=== PATIENT | male | born 1955 | race Caucasian/White ===

== ENCOUNTER 2019-11-19 13:56 | Emergency (ER) | payer BC, OTHER ==
[~2019-11-19] VITALS: Ht 177.8 cm; Wt 72.6 kg
[~2019-11-19 13:56] MED LIST: LISINOPRIL10 MG PO
--- OUTSIDE RECORDS SUMMARY | 2019-11-19 13:58 | XMS REPORT | Continuity of Care Document ---
Author Author Joanna Solo U4EA CORBIN Cervantes Organization [employer] Address Unknown Phone Unavailable Care Team Providers Care Toll Operator Name Role Phone [employer] Unavailable Un available Problems Problem Status Onset Date Classification Date Reported Comments Source Discharge Diagnosis: Confusion 10/22/2015 10/25/2015 [facility] CHEST PAIN Active 10/21/2015 [facility] Hypertensive disorder, systemic arterial (disorder) Active Problem 04/10/2019 [facility] Varicella (disorder) Active Problem 04/10/2019 [facility] [place] [facility] [place] Medications Medication Details Route Status Patient Instructions Ordering Provider Order Date Source Metoprolol Succinate ER 25 mg oral table t, extended release 25 mg = 1 tab, PO, Daily, # 90 tab, 1 Re fill(s), Pharmacy: [facility] Active 04/08/2019 [facility] Amlodipine 10 MG / Olmesartan medoxomil 40 MG Oral Tablet 1 tab, PO, Daily, # 90 tab, 1 Refill(s), Pharmacy: [facility] Active 04/08/2019 [facility] {11 (varenicline 0.5 MG Oral Tablet [Kimmy ntix]) / 42 (varenicline 1 MG Oral Tablet [Chantix]) } Pack [Chantix First Month of Therapy] See Instructions, follow instructions on kit, # 1 kit, 0 Refill(s), Pharmacy: [facility] Active 12/10/2018 [facility] Anoro Ellipta 62.5 mcg-25 mcg inhalation powder 1 puff, INHALATION, Daily, # 1 ea, 5 Refill(s), Pharmacy: [facility] Active 12/10/2018 [facility] Metoprolol Succinate ER 25 mg oral table t, extended release 25 mg = 1 tab, PO, Daily, # 90 tab, 1 Re fill(s), Pharmacy: [facility] Active 11/27/2018 [facility] Amlodipine 10 MG / Olmesartan medoxomil 40 MG Oral Tablet 1 tab, PO, Daily, # 90 tab, 1 Refill(s), Pharmacy: [facility] Active 10/16/2018 [facility] metoprolol 25 mg oral tablet, extended release 25 mg = 1 tab, PO, Daily, # 30 tab, 0 Refill(s), Pharmacy: [facility] Active 10/16/2018 [facility] Amlodipine 10 MG / Olmesartan medoxomil 40 MG Oral Tablet 1 tab, PO, Daily, # 30 tab, 0 Refill(s), Pharmacy: [facility] Active 10/03/2018 [facility] Amlodipine 10 MG / Olmesartan medoxomil 20 MG Oral Tablet 1 tab, PO, Daily, # 30 tab, 0 Refill(s), Pharmacy: [facility] No Longer Active 09/17/2018 [facility] Amlodipine 5 MG / Olmesartan medoxomil 2 0 MG Oral Tablet 1 tab, PO, Daily, # 30 tab, 0 Refill(s), Pharmacy: [facility] Active 09/03/2018 [facility] amLODIPine 5 mg oral tablet 5 mg = 1 tab, PO, Daily, # 30 tab, 0 Refill(s), Pharmacy: [facility] Active 08/06/2018 [facility] FLUoxetine 40 mg oral capsule 40 mg = 1 cap, PO, Daily, # 90 cap, 1 Refill(s), Pharmacy: [facility] Active 07/13/2017 [facility] amLODIPine 5 mg oral tablet 5 mg = 1 tab, PO, Daily, # 90 tab, 1 Refill(s), Pharmacy: [facility] Active 07/13/2017 [facility] Fluticasone propionate 0.05 MG/ACTUAT Me tered Dose Nasal [place] [Flonase] 1 spray, NASAL, BID, # 16 gm, 2 Refill(s ), Pharmacy: [facility] Active 07/13/2017 [facility] Oseltamivir 75 MG Oral Capsule [Tamiflu] 75 mg, PO, Daily, X 10 day, # 10 caplet, 0 Refill(s), Pharmacy: [facility] No Longer Active 07/10/2017 [facility] Amoxicillin 875 MG / Clavulanate 125 MG Oral Tablet [Augmentin 875-mg] 875 mg = 1 tab, PO, BID, X 10 day, # 20 tab, 0 Refill(s), Pharmacy: [facility] [place] No Longer Active 07/10/2017 [facility] valacyclovir 1000 MG Oral Tablet [Valtrex] 1 gm = 1 tab, PO, BID, X 7 day, # 14 tab, 0 Refill(s), Pharmacy: [facility] No Longer Active 07/10/2017 [facility] Oseltamivir 75 MG Oral Capsule [Tamiflu] 75 mg, PO, BID, X 5 day, # 10 cap, 0 Refill(s), Pharmacy: [facility] Active 05/24/2017 [facility] Allergies, Adverse Reactions, Alerts Substance Category Reaction Severity Reaction type Status Date Reported Comments Source No Known Medication Allergies Assertion Drug aller [facility] Immunizations Immunization Date Given Site Status Last Updated Comments Source pneumococcal 23-valent vaccine 11/27/2018 Right Deltoid completed [facility] influenza virus vaccine, inactivated 03/12/2018 completed [facility] diphtheria/pertussis/tetanus tox 06/12/2016 completed [facility] Results Order Name Results Value Reference Range Date Interpretation Comments Source URINE AND STOOL UA Turbidity Clear (10/22/15 1:36 AM) Clear 10/22/2015 [facility] URINE AND STOOL UA RBC 4 0 - 2 10/22/2015 [facility] URINE AND STOOL UA Leuk Est Negative (10/22/15 1:36 AM) Negative 10/22/2015 [facility] URINE AND STOOL UA Sq Epi None Seen 10/22/2015 [facility] URINE AND STOOL UA Color Ltyellow 10/22/2015 [facility] URINE AND STOOL UA Urobilinogen <=1.0 mg/dL 0.1 - 1.0 10/22/2015 [facility] URINE AND STOOL UA Spec Grav 1.011 <=1.030 10/22/2015 [facility] URINE AND STOOL UA Protein Negative mg/dL Negative mg/dL 10/22/2015 [facility] URINE AND STOOL UA Glucose Negative mg/dL Negative mg/dL 10/22/2015 [facility] URINE AND STOOL UA pH 6.0 5.0 - 8.0 10/22/2015 [facility] URINE AND STOOL UA Ketones Negative mg/dL Negative mg/dL 10/22/2015 [facility] URINE AND STOOL UA Bili Negative *NA* (10/22/15 1:36 AM) Negative 10/22/2015 [facility] URINE AND STOOL UA Blood Small *ABN* (10/22/15 1:36 AM) Negative 10/22/2015 [facility] URINE AND STOOL UA Nitrite Negative (10/22/15 1:36 AM) Negative 10/22/2015 [facility] CARDIAC ENZYMES Total CK 96 12 - 191 10/22/2015 [facility] CARDIAC ENZYMES Troponin-I <0.02 0.00 - 0.40 10/22/2015 [facility] CARDIAC ENZYMES CK MB 1.6 0.5 - 3.6 10/22/2015 [facility] CARDIAC ENZYMES CK MB Index 1.7 0.0 - 2.5 10/22/2015 [facility] CHEM PANEL eGFR 87 10/22/2015 Result Comment: The eGFR is calculated using the CKD-EPI formula. In most young, healthy individuals the eGFR will be >90 mL/min/1.73m2. The eGFR declines with age. An eGFR of 60-89 may be normal in some populations, particularly the elderly, for whom the CKD-EPI formula has not been extensively validated. Use of the eGFR is not recommended in the following populations:

Individuals with unstable creatinine concentrations, including patients and those with serious co-morbid conditions.

Patients with extremes in muscle mass or diet.

The data above are obtained from the National Kidney Disease Education Program (NKDEP) which additionally recommends that when the eGFR is used in patients with extremes of body mass index for purposes of drug dosing, the eGFR should be multiplied by the estimated BMI. [facility] CHEM PANEL Sodium Lvl 142 135 - 145 10/22/2015 [facility] CHEM PANEL Creatinine Lvl 0.95 0.50 - 1.40 10/22/2015 [facility] CHEM PANEL BUN 15 7 - 22 10/22/2015 [facility] CHEM PANEL Albumin Lvl 3.8 3.5 - 5.0 10/22/2015 [facility] CHEM PANEL Total Protein 6.7 6.4 - 8.4 10/22/2015 [facility] CHEM PANEL ALT 24 0 - 65 10/22/2015 [facility] CHEM PANEL Potassium Lvl 3.9 3.5 - 5.1 10/22/2015 [facility] CHEM PANEL CO2 30 24 - 32 10/22/2015 [facility] CHEM PANEL Chloride Lvl 106 95 - 109 10/22/2015 [facility] CHEM PANEL Calcium Lvl 8.4 8.5 - 10.5 10/22/2015 [facility] CHEM PANEL Alk Phos 94 39 - 136 10/22/2015 [facility] CHEM PANEL AST 21 0 - 37 10/22/2015 [facility] CHEM PANEL Bili Total 0.4 0.2 - 1.3 10/22/2015 [facility] CHEM PANEL Glucose Lvl 86 70 - 99 10/22/2015 [facility] CHEM PANEL A/G Ratio 1.3 0.7 - 1.6 10/22/2015 [facility] CHEM PANEL Globulin 2.9 2.0 - 4.0 10/22/2015 [facility] CHEM PANEL B/C Ratio 16 6 - 25 10/22/2015 [facility] CHEM PANEL AGAP 9.9 10.0 - 20.0 10/22/2015 [facility] HEMATOLOGY INR 1.01 0.85 - 1.17 10/22/2015 [facility] HEMATOLOGY PTT 32.2 22.9 - 35.8 10/22/2015 [facility] HEMATOLOGY PT 13.6 12.0 - 14.7 10/22/2015 [facility] HEMATOLOGY MCHC 33.1 32.0 - 36.0 10/22/2015 [facility] HEMATOLOGY MCH 30.4 27.0 - 31.0 10/22/2015 [facility] HEMATOLOGY RDW 13.5 11.5 - 14.5 10/22/2015 [facility] HEMATOLOGY Hct 47.1 42.0 - 54.0 10/22/2015 [facility] HEMATOLOGY Hgb 15.6 14.0 - 18.0 10/22/2015 [facility] HEMATOLOGY MCV 91.9 80.0 - 94.0 10/22/2015 [facility] HEMATOLOGY Platelet 199 133 - 450 10/22/2015 [facility] HEMATOLOGY MPV 8.5 7.4 - 10.4 10/22/2015 [facility] HEMATOLOGY RBC 5.12 4.70 - 6.10 10/22/2015 [facility] HEMATOLOGY WBC 5.8 3.7 - 10.4 10/22/2015 [facility] HEMATOLOGY Basophils 1.0 0.0 - 1.0 10/22/2015 [facility] HEMATOLOGY Segs 56.9 45.0 - 75.0 10/22/2015 [facility] HEMATOLOGY Monocytes 10.0 2.0 - 12.0 10/22/2015 [facility] HEMATOLOGY Eosinophils 5.2 0.0 - 4.0 10/22/2015 [facility] HEMATOLOGY Lymphocytes 26.9 20.0 - 40.0 10/22/2015 [facility] Monocytes # 0.6 0.0 - 0.8 10/22/2015 [facility] HEMATOLOGY Segs-Bands # 3.3 1.5 - 8.1 10/22/2015 [facility] Lymphocytes # 1.6 1.0 - 5.5 10/22/2015 [facility] HEMATOLOGY Basophils # 0.1 0.0 - 0.2 10/22/2015 [facility] HEMATOLOGY Eosinophils # 0.3 0.0 - 0.5 10/22/2015 [facility] Pathology Reports No Data Provided for This Section Diagnostic Reports Report Value Date Source CT Low Dose Lung Screening Julio dy: CT Low Dose Lung Screening Age: 62 years y/o Male Clinical Indication: - Z72.0 Tobacco use; HISTORY: Asymptomatic patient meeting NCCN high-risk criteria for lung screening. Patient is currently a smoker. There is a 50 pack-year history of smoking. Exam: This is a baseline study. COMPARISON: None. TECHNIQUE: Noncontrast, volumetric low-dose CT Chest. Total exam DLP: 104.28 mGy-- cm FINDINGS: Heart is normal in size. Scattered aortic calcifications. The ascending aorta and pulmonary trunk are normal in caliber. Mild calcifications in the left anterior descending and left circumflex coronary arteries. No pericardial effusion. There are no pleural effusions. Evaluation of the solid organs of the upper abdomen is very limited by artifact. There is a 12 mm hypodensity in the liver on axial image 224, likely a cyst. Calcified granulomas in the spleen. Subcentimeter mediastinal lymph nodes. Mild dependent debris in the right main bronchus. Peripheral small airways are thickened. There is centrilobular emphysema with an upper lobe predilection. Mild dependent atelectasis of the left lung base. Pulmonary nodules as follows, series 2: Punctate nodule right apex image 35 Calcified granulomas scattered in the right lung. Degenerative changes of thoracic spine osteophytes. Scattered Schmorl's nodes. Mild rightward curvature of the thoracic spine. LUNG-RADS CATEGORY AND IMPRESSION: 1. Lung-Rads Category: Category 2 -- Continue annual screening with next low-dose chest CT in 12 months. 2. Centrilobular emphysema with an upper lobe predilection. 3. Mild coronary artery calcifications. Category C -- History of lung cancer: None Category S -- Other findings requiring urgent evaluation: None. Thank you for choosing the [facility] Lung Screening Program. 12/04/2018 [facility] Chest 1view DX Portable chest: The cardiomediastinal silhouette and pulmonary vasculature are within normal limits. There is a subcentimeter nodular opacity overlying left anterior 6th rib, probably representing a nipple shadow. There is a subcentimeter calcified granuloma in the right lung base. The lungs and pleural spaces are otherwise clear. There are no acute osseous abnormalities. [id number] 10/22/2015 [facility] Brain wo contrast CT CT HEAD W ITHOUT CONTRAST: HISTORY: Confusion and paranoia. TECHNIQUE: Multislice axial acquisitions were done without contrast. Sagittal and coronal reformatted images were also obtained. FINDINGS: There is no significant parenchymal abnormality, hemorrhage, infarct, mass, or shift. There is asymmetry of the ventricles with a slightly larger right lateral ventricle, with midline shift of the septum pellucidum to the left. The atria and temporal horns are symmetric and normal. The ventricles and extra-axial spaces are otherwise within normal limits. There are no significant osseous abnormalities. IMPRESSION: Asymmetric appearance of the lateral ventricles, most likely developmental variation. There is no other acute CT abnormality of the brain. [id number] 10/22/2015 [facility] Consultation Notes No Data Provided for This Section Discharge Summaries No Data Provided for This Section History and Physicals No Data Provided for This Section Vital Signs Vital Sign Value Date Comments Source Systolic (mm Hg) 157 04/08/2019 [facility] Diastolic (mm Hg) 91 04/08/2019 [facility] Heart Rate 73 04/08/2019 [facility] Temperature Oral (F) 97.8 F 04/08/2019 [facility] Height 175.26 cm 04/08/2019 [facility] Weight 70.54 04/08/2019 [facility] BMI Calculated 22.97 04/08/2019 [facility] Height 175.26 cm 12/10/2018 [facility] Weight 68.239 12/10/2018 [facility] BMI Calculated 22.22 12/10/2018 [facility] Systolic (mm Hg) 151 12/10/2018 [facility] Diastolic (mm Hg) 88 12/10/2018 [facility] Heart Rate 78 12/10/2018 [facility] Temperature Oral (F) 98.0 F 12/10/2018 [facility] BMI Calculated 21.8 11/27/2018 [facility] Weight 66.96 11/27/2018 [facility] Temperature Oral (F) 97.9 F 11/27/2018 [facility] Height 175.26 cm 11/27/2018 [facility] Heart Rate 80 11/27/2018 [facility] Systolic (mm Hg) 150 11/27/2018 [facility] Diastolic (mm Hg) 84 11/27/2018 [facility] Weight 70.142 10/16/2018 [facility] BMI Calculated 22.84 10/16/2018 [facility] Height 175.26 cm 10/16/2018 [facility] Systolic (mm Hg) 144 10/16/2018 [facility] Diastolic (mm Hg) 88 10/16/2018 [facility] Heart Rate 86 10/16/2018 [facility] Temperature Oral (F) 97.7 F 10/16/2018 [facility] Weight 68.636 09/03/2018 [facility] BMI Calculated 22.35 09/03/2018 [facility] Height 175.26 cm 09/03/2018 [facility] Heart Rate 72 09/03/2018 [facility] Temperature Oral (F) 98.0 F 09/03/2018 [facility] Systolic (mm Hg) 165 09/03/2018 [facility] Diastolic (mm Hg) 93 09/03/2018 [facility] BMI Calculated 22.23 08/06/2018 [facility] Weight 68.295 08/06/2018 [facility] Height 175.26 cm 08/06/2018 [facility] Heart Rate 77 08/06/2018 [facility] Systolic (mm Hg) 175 08/06/2018 [facility] Diastolic (mm Hg) 90 08/06/2018 [facility] Temperature Oral (F) 97.9 F 08/06/2018 [facility] BMI Calculated 23.1 07/13/2017 [facility] Weight 70.966 07/13/2017 [facility] Systolic (mm Hg) 148 07/13/2017 [facility] Diastolic (mm Hg) 82 07/13/2017 [facility] Heart Rate 82 07/13/2017 [facility] Temperature Oral (F) 98.1 F 07/13/2017 [facility] Height 175.26 cm 07/13/2017 [facility] BMI Calculated 23.09 07/10/2017 [facility] Weight 70.909 07/10/2017 [facility] Height 175.26 cm 07/10/2017 [facility] Heart Rate 96 07/10/2017 [facility] Temperature Oral (F) 99.0 F 07/10/2017 [facility] Systolic (mm Hg) 149 07/10/2017 [facility] Diastolic (mm Hg) 80 07/10/2017 [facility] Temperature Oral (F) 98.4 F 05/24/2017 [facility] Heart Rate 92 05/24/2017 [facility] Height 175.26 cm 05/24/2017 [facility] BMI Calculated 23.86 05/24/2017 [facility] Systolic (mm Hg) 122 05/24/2017 [facility] Diastolic (mm Hg) 82 05/24/2017 [facility] Weight 73.295 05/24/2017 [facility] Systolic (mm Hg) 136 10/22/2015 [facility] Diastolic (mm Hg) 79 10/22/2015 [facility] Respitory Rate 18 10/22/2015 [facility] Temperature Oral (F) 97.9 F 10/22/2015 [facility] Systolic (mm Hg) 116 10/22/2015 [facility] Diastolic (mm Hg) 73 10/22/2015 [facility] Respitory Rate 16 10/22/2015 [facility] Systolic (mm Hg) 131 10/22/2015 [facility] Diastolic (mm Hg) 78 10/22/2015 [facility] Respitory Rate 16 10/22/2015 [facility] Temperature Oral (F) 97.7 F 10/22/2015 [facility] Heart Rate 66 10/22/2015 [facility] Temperature Oral (F) 98 F 10/22/2015 [facility] Heart Rate 70 10/22/2015 [facility] Weight 68.182 10/22/2015 [facility] Heart Rate 79 10/22/2015 [facility] Encounters Location Location Details Encounter Type Encounter Number Reason For Visit Attending Provider ADM Date DC Date Status Source Outpatient [id number] LADY JOHNSON 08/17/2015 Active [facility] Outpatient [id number] LADY JOHNSON 08/21/2015 Active [facility] Outpatient [id number] LADY JOHNSON 10/06/2015 Active [facility] Outpatient [id number] LADY JOHNSON 10/20/[address] [facility] [id number] Steffanie Galvez 10/22/2015 10/22/2015 [facility] Outpatient [id number] LADY JOHNSON 10/22/2015 [facility] [id number] MARTHA GOLDIE 10/22/2015 [facility] [id number] LADY JOHNSON 11/06/2015 Active [facility] Out[facility] [id number] LADY JOHNSON 12/04/2015 Active [facility] Outpatient [id number] LADY JOHNSON 12/21/2015 Active [facility] Out[facility] [id number] LADY JOHNSON 08/08/2016 Active [facility] Outpatient [id number] LADY JOHNSON 01/10/2017 [facility] [id number] LADY JOHNSON 05/24/2017 Active [facility] [place] Outpatient [id number] Lady Johnson 05/24/2017 05/25/2017 [facility] Outpatient [id number] EUGENE VILLARREAL 07/10/2017 [facility] [place] Outpatient [id number] Lady Johnson 07/10/2017 07/11/2017 [facility] Outpatient [id number] LADY JOHNSON 07/13/2017 [facility] [place] Outpatient [id number] Lady Johnson 07/13/2017 07/14/2017 [facility] Outpatient [id number] LADY JOHNSON 08/06/2018 [facility] [place] Outpatient [id number] Lady Johnson 08/06/2018 08/07/2018 [facility] Outpatient [id number] Lady Johnson 09/03/2018 [facility] [place] Outpatient [id number] Lady Johnson 09/03/2018 09/04/2018 [facility] [place] Phone Message [id number] 10/03/2018 10/05/2018 [facility] [place] Phone Message [id number] 10/08/2018 10/10/2018 [facility] Outpatient [id number] Lady Johnson 10/16/2018 Active [facility] [place] Outpatient [id number] Lady Johnson 10/16/2018 10/17/2018 [facility] Outpatient [id number] Lady Johnson 11/27/2018 Active [facility] [place] Outpatient [id number] Lady Johnson 11/27/2018 11/28/2018 [facility] [place] Between Visit [id number] 12/03/2018 12/04/2018 [facility] Outpatient [id number] Lady Johnson 12/03/2018 Active [facility] [place] Ambulatory Pre-Reg [id number] Lady Johnson 12/03/2018 12/03/2018 [facility] Outpatient [facility] [place] Outpt Diag Services [id number] Lady Johnson 12/04/2018 12/05/2018 [facility] [place] Between Visit [id number] 12/06/2018 12/07/2018 [facility] Outpatient [id number] Lady Johnson 12/10/2018 Active [facility] [place] Outpatient [id number] Lady Johnson 12/10/2018 12/11/2018 [facility] Outpatient [id number] Lady Johnson 04/08/2019 Active [facility] [place] Outpatient [id number] Lady Johnson 04/08/2019 04/09/2019 [facility] Procedures Procedure Code Date Perfomer Comments Source Eye examination [id number] [facility]10/2017 [facility] [place] [facility] [id number] 06/12/2017 [facility] [id number] 06/12/2007 [facility] [place] Fasciotomy [id number] [facility] [place] Hernia repair [id number] [facility] [place] [facility] [id number] [facility] [place] Thyroidectomy [id number] [facility] [place] Assessment and Plan No Data Provided for This Section Plan of Care No Data Provided for This Section Social History Social History Date Source Social History TypeResponse Smoking Status Current every day smoker; Type: Cigars; Lives with someone who smokes; Cigarette Smoking Last 365 Days Yes; Reg Smoking Cessation Counseling No; Tobacco use per day: 10; entered on: 04/08/19 04/08/2019 [facility] Social History TypeResponse Smoking Status Current every day smoker; Type: Cigars; Lives with someone who smokes; Cigarette Smoking Last 365 Days Yes; Reg Smoking Cessation Counseling No; Tobacco use per day: 10; entered on: 11/27/18 11/27/2018 [facility] Social History TypeResponse Smoking Status Current every day smoker; Type: Cigars; Tobacco use per day: 10; Lives with someone who smokes; Cigarette Smoking Last 365 Days Yes; Reg Smoking Cessation Counseling No 10/22/2015 [facility] Family History No Data Provided for This Section Advance Directives No Data Provided for This Section Functional Status No Data Provided for This Section
--- OUTSIDE RECORDS SUMMARY | 2019-11-19 13:59 | XMS REPORT | Summary of Care ---
Author Author [facility] Address Unknown Phone Unavailable Care Team Providers Care Squadron Worker Name Role Phone Lady Johnson PCP Encounter HQ Encntr_eugenia(FIN) [id number] Date(s): 10/03/18 - 10/04/18 [facility] [address] [place] [address]- [phone] Vital Signs No data available for this section Problem List Condition Effective Dates Status Health Status Informan t HTN Active (hypertension)(Confi rmed) Chicken Active pox(Confirmed) Allergies, Adverse Reactions, Alerts No Known Medication Allergies Medications amLODIPine-olmesartan 10 mg-40 mg oral tablet 1 tab, PO, Daily, # 30 tab, 0 Refill(s), Pharmacy: [facility] [place] Start Date: 10/03/18 Status: Ordered Results No data available for this section Immunizations No data available for this section Procedures Procedure Date Related Diagnosis Body Site Status Eye examination 07/10/17 Completed Fasciotomy Completed Hernia repair Completed Surgery Completed Surgery Completed Thyroidectomy Completed Social History Social History Type Response Smoking Status Current every day smoker; T ype: Cigars; Lives with someone who smokes; Cigarette Smoking Last 365 Days Yes; Re g Smoking Cessation Counseling No; Tobacco use per day: 10; entered on: 09/03/18 Assessment and Plan No data available for this section
--- OUTSIDE RECORDS SUMMARY | 2019-11-19 13:59 | XMS REPORT | Summary of Care ---
Author Author [facility] Organization [facility] [place] [facility] Address Unknown Phone Unavailable Encounter AUBREY Mccaeb(KINA) [id number] Date(s): 10/22/15 - 10/22/15 [facility] [address] [place] [address]- Discharge Diagnosis: Confusion Discharge Disposition: Home Attending Physician: Steffanie Galvez DO Vital Signs 1 2 3 Most recent to oldest [Reference Range]: 97.9 DegF (10/22/15 6:05 AM) 97.7 DegF (10/22/15 2:34 AM) 98 DegF (10/22/15 2:10 AM) Temperature Oral [96.4-99.1 DegF] 136/79 mmHg (10/22/15 6:05 AM) 116/73 mmHg (10/22/15 4:45 AM) 131/78 mmHg (10/22/15 2:45 AM) Blood Pressure [90-140/60-90 mmHg] 18 BRMIN (10/22/15 6:05 AM) 16 BRMIN (10/22/15 4:45 AM) 16 BRMIN (10/22/15 2:45 AM) Respiratory Rate [14-20 BRMIN] 66 bpm (10/22/15 2:34 AM) 70 bpm (10/22/15 2:10 AM) 79 bpm (10/22/15 12:18 AM) Peripheral Pulse Rate [60-100 bpm] 68.182 kg (10/22/15 12:18 AM) Weight Problem List Condition Effective Dates Status Health Status Informan t HTN Active (hypertension)(Confi rmed) Chicken Active pox(Confirmed) Allergies, Adverse Reactions, Alerts Substance Reaction Severity Status NKDA Active Medications No data available for this section Results ELECTROLYTES Most recent to 1 oldest [Reference Range]: Sodium Lvl [135-145 142 mEq/L mEq/L] (10/22/15 1:13 AM) Potassium Lvl 3.9 mEq/L [3.5-5.1 mEq/L] (10/22/15 1:13 AM) Chloride Lvl [95-109 106 mEq/L mEq/L] (10/22/15 1:13 AM) CO2 [24-32 mEq/L] 30 mEq/L (10/22/15 1:13 AM) AGAP [10.0-20.0 9.9 mEq/L mEq/L] *LOW* (10/22/15:13 AM) CHEM PANEL Most recent to 1 oldest [Reference Range]: Creatinine Lvl 0.95 mg/dL [0.50-1.40 mg/dL] (10/22/15 1:13 AM) eGFR 87 mL/min/1.73m2 1 *NA* (10/22/15: AM) BUN [7-22 mg/dL] 15 mg/dL (10/22/15 1:13 AM) B/C Ratio [6-25] 16 (10/22/15 1:13 AM) Glucose Lvl [70-99 86 mg/dL mg/dL] (10/22/15 1:13 AM) Total Protein 6.7 g/dL [6.4-8.4 g/dL] (10/22/15 1:13 AM) Albumin Lvl [3.5-5.0 3.8 g/dL g/dL] (10/22/15 1:13 AM) Globulin [2.0-4.0 2.9 g/dL g/dL] (10/22/15:13 AM) A/G Ratio [0.7-1.6] 1.3 (10/22/15 1:13 AM) Calcium Lvl 8.4 mg/dL [8.5-10.5 mg/dL] *LOW* (10/22/15:13 AM) ALT [0-65 unit/L] 24 unit/L (10/22/15 1:13 AM) AST [0-37 unit/L] 21 unit/L (10/22/15 1:13 AM) Alk Phos [39-136 94 unit/L unit/L] (10/22/15 1:13 AM) Bili Total [0.2-1.3 0.4 mg/dL mg/dL] (10/22/15 1:13 AM) 1Result Comment: The eGFR is calculated using the [...] from the National Kidney Disease Education Program ( NKDEP) which additionally recommends that when the eGFR is used in patients with extremes of body mass index for purposes of drug dosing, the eGFR should be mul tiplied by the estimated BMI. CARDIAC ENZYMES Most recent to 1 oldest [Reference Range]: Total CK [12-191 96 unit/L unit/L] (10/22/15 1:13 AM) CK MB [0.5-3.6 1.6 ng/mL ng/mL] (10/22/15 1:13 AM) CK MB Index 1.7 [0.0-2.5] (10/22/15 1:13 AM) Troponin-I <0.02 ng/mL [0.00-0.40 ng/mL] (10/22/15 1:13 AM) URINE AND STOOL Most recent to 1 oldest [Reference Range]: UA Turbidity [Clear] Clear (10/22/15 1:36 AM) UA Color Ltyellow *NA* (10/22/15 1:36 AM) UA pH [5.0-8.0] 6.0 (10/22/15 1:36 AM) UA Spec Grav 1.011 [<=1.030] (10/22/15 1:36 AM) UA Glucose [Negative Negative mg/dL mg/dL] *NA* (10/22/15 1:36 AM) UA Blood [Negative] Small *ABN* (10/22/15 1:36 AM) UA Ketones [Negative Negative mg/dL mg/dL] *NA* (10/22/15 1:36 AM) UA Protein [Negative Negative mg/dL mg/dL] (10/22/15 1:36 AM) UA Urobilinogen <=1.0 mg/dL [0.1-1.0 mg/dL] *NA* (10/22/15 1:36 AM) UA Bili [Negative] Negative *NA* (10/22/15 1:36 AM) UA Leuk Est Negative [Negative] (10/22/15 1:36 AM) UA Nitrite Negative [Negative] (10/22/15 1:36 AM) UA RBC [0-2 /HPF] 4 /HPF *HI* (10/22/15 1:36 AM) UA Sq Epi None Seen *NA* (10/22/15 1:36 AM) HEMATOLOGY Most recent to 1 oldest [Reference Range]: WBC [3.7-10.4 K/CMM] 5.8 K/CMM (10/22/15 1:13 AM) RBC [4.70-6.10 5.12 M/CMM M/CMM] (10/22/15 1:13 AM) Hgb [14.0-18.0 g/dL] 15.6 g/dL (10/22/15 1:13 AM) Hct [42.0-54.0 %] 47.1 % (10/22/15 1:13 AM) MCV [80.0-94.0 fL] 91.9 fL (10/22/15 1:13 AM) MCH [27.0-31.0 pg] 30.4 pg (10/22/15 1:13 AM) MCHC [32.0-36.0 33.1 g/dL g/dL] (10/22/15 1:13 AM) RDW [11.5-14.5 %] 13.5 % (10/22/15 1:13 AM) Platelet [133-450 199 K/CMM K/CMM] (10/22/15 1:13 AM) MPV [7.4-10.4 fL] 8.5 fL (10/22/15 1:13 AM) Segs [45.0-75.0 %] 56.9 % (10/22/15 1:13 AM) Lymphocytes 26.9 % [20.0-40.0 %] (10/22/15 1:13 AM) Monocytes [2.0-12.0 10.0 % %] (10/22/15 1:13 AM) Eosinophils [0.0-4.0 5.2 % %] *HI* (10/22/15 1:13 AM) Basophils [0.0-1.0 1.0 % %] (10/22/15 1:13 AM) Segs-Bands # 3.3 K/CMM [1.5-8.1 K/CMM] (10/22/15 1:13 AM) Lymphocytes # 1.6 K/CMM [1.0-5.5 K/CMM] (10/22/15 1:13 AM) Monocytes # [0.0-0.8 0.6 K/CMM K/CMM] (10/22/15 1:13 AM) Eosinophils # 0.3 K/CMM [0.0-0.5 K/CMM] (10/22/15 1:13 AM) Basophils # [0.0-0.2 0.1 K/CMM K/CMM] (10/22/15 1:13 AM) PT [12.0-14.7 13.6 seconds seconds] (10/22/15 1:13 AM) INR [0.85-1.17] 1.01 (10/22/15 1:13 AM) PTT [22.9-35.8 32.2 seconds seconds] (10/22/15 1:13 AM) Immunizations No data available for this section Procedures Procedure Date Related Diagnosis Body Site Fasciotomy Hernia repair Surgery Surgery Thyroidectomy Social History Social History Type Response Smoking Status Current every day smoker; T ype: Cigars; Tobacco use per day: 10; Lives with someone who smokes; Cigarette Smoking L ast 365 Days Yes; Reg Smoking Cessation Counseling No Assessment and Plan No data available for this section
--- OUTSIDE RECORDS SUMMARY | 2019-11-19 13:59 | XMS REPORT | Summary of Care ---
Author Author [facility] Address Unknown Phone Unavailable Encounter HQ Valentr_eugenia(FIN) [id number] Date(s): 09/03/18 - 09/03/18 [facility] [address] [place] [address]- [phone] Discharge Disposition: Home or Self Care Attending Physician: Lady Johnson MD Vital Signs Most recent to 1 oldest [Reference Range]: Height 175.26 cm (09/03/18 8:31 AM) Temperature Oral 98.0 DegF [96.4-99.1 DegF] (09/03/18 8:31 AM) Blood Pressure 165/93 mmHg [90-140/60-90 mmHg] *HI* (09/03/18 8:31 AM) Peripheral Pulse 72 bpm Rate [60-100 bpm] (09/03/18 8:31 AM) Weight 68.636 kg (09/03/18 8:31 AM) Body Mass Index 22.35 m2 (09/03/18 8:31 AM) Problem List Condition Effective Dates Status Health Status Informan t HTN Active (hypertension)(Confi rmed) Chicken Active pox(Confirmed) Allergies, Adverse Reactions, Alerts Substance Reaction Severity Status NKDA Active Medications amLODIPine-olmesartan 5 mg-20 mg oral tablet 1 tab, PO, Daily, # 30 tab, 0 Refill(s), Pharmacy: [facility] Start Date: 09/03/18 Status: Ordered Results No data available for [...]
--- OUTSIDE RECORDS SUMMARY | 2019-11-19 13:59 | XMS REPORT | Summary of Care ---
Author Author [facility] Address Unknown Phone Unavailable Encounter HQ Elizabetr_eugenia(FIN) [id number] Date(s): 07/10/17 - 07/10/17 [facility] [address] [place] [address]- [phone] Discharge Disposition: Home or Self Care Attending Physician: Kym Church MD Referring Physician: Lady Johnson MD Vital Signs Most recent to 1 oldest [Reference Range]: Height 175.26 cm (07/10/17 9:55 AM) Temperature Oral 99.0 DegF [96.4-99.1 DegF] (07/10/17 9:55 AM) Blood Pressure 149/80 mmHg [90-140/60-90 mmHg] *HI* (07/10/17 9:55 AM) Peripheral Pulse 96 bpm Rate [60-100 bpm] (07/10/17 9:55 AM) Weight 70.909 kg (07/10/17 9:55 AM) Body Mass Index 23.09 m2 (07/10/17 9:55 AM) Problem List Condition Effective Dates Status Health Status Informan t HTN Active (hypertension)(Confi rmed) Chicken Active pox(Confirmed) Allergies, Adverse Reactions, Alerts Substance Reaction Severity Status NKDA Active Medications Augmentin 875 mg oral tablet 875 mg = 1 tab, PO, BID, X 10 day, # 20 tab, 0 Refill(s), Pharmacy: [facility] Start Date: 07/10/17 Stop Date: 07/20/17 Status: Completed TamiFLU 75 mg oral capsule 75 mg, PO, Daily, X 10 day, # 10 caplet, 0 Refill(s), Pharmacy: [facility] Start Date: 07/10/17 Stop Date: 07/13/17 Status: Discontinued Valtrex 1 g oral tablet 1 gm = 1 tab, PO, BID, X 7 day, # 14 tab, 0 Refill(s), Pharmacy: [facility] Start Date: 07/10/17 Stop Date: 07/13/17 Status: Discontinued Results No data available for this section [...] Tobacco use per day: 10; entered on: 07/13/17 Assessment and Plan No data available for this section
--- OUTSIDE RECORDS SUMMARY | 2019-11-19 13:59 | XMS REPORT | Summary of Care ---
Author Author [facility] Address Unknown Phone Unavailable Encounter AUBREY Mccabe(FIN) [id number] Date(s): 04/08/19 - 04/08/19 [facility] [address] [place] [address]- [phone] Discharge Disposition: Home or Self Care Attending Physician: Lady Johnson MD Vital Signs Most recent to 1 oldest [Reference Range]: Height 175.26 cm (04/08/19 9:16 AM) Temperature Oral 97.8 DegF [96.4-99.1 DegF] (04/08/19 9:16 AM) Blood Pressure 157/91 mmHg [90-140/60-90 mmHg] *HI* (04/08/19 9:16 AM) Peripheral Pulse 73 bpm Rate [60-100 bpm] (04/08/19 9:16 AM) Weight 70.54 kg (04/08/19 9:16 AM) Body Mass Index 22.97 m2 (04/08/19 9:16 AM) Problem List Condition Effective Dates Status Health Status Informan t HTN Active (hypertension)(Confi rmed) Chicken Active pox(Confirmed) Allergies, Adverse Reactions, Alerts No Known Medication Allergies Medications amLODIPine-olmesartan 10 mg-40 mg oral tablet 1 tab, PO, Daily, # 90 tab, 1 Refill(s), Pharmacy: [facility] Start Date: 04/08/19 Status: Ordered Metoprolol Succinate ER 25 mg oral tablet, extended release 25 mg = 1 tab, PO, Daily, # 90 tab, 1 Refill(s), Pharmacy: [facility] Start Date: 04/08/19 Status: Ordered Results No data available for this section Immunizations Given and Recorded Vaccine Date Status Refusal Reason pneumococcal 23-valent vaccine 11/27/18 Given influenza virus vaccine, inactivated 03/12/18 R ecorded diphtheria/pertussis/tetanus tox 06/12/16 Recor ded Procedures Procedure Date Related Diagnosis Body Site Status Eye examination 07/10/17 Completed Vision care 2017 Completed Dental care 2007 Completed Fasciotomy Completed Hernia repair Completed Surgery Completed Surgery Completed Thyroidectomy Completed Social History Social History Type Response Smoking Status Current every day smoker; T ype: Cigars; Lives with someone who smokes; Cigarette Smoking Last 365 Days Yes; Re g Smoking Cessation Counseling No; Tobacco use per day: 10; entered on: 04/08/19 Assessment and Plan No data available for this section
--- OUTSIDE RECORDS SUMMARY | 2019-11-19 13:59 | XMS REPORT | Summary of Care ---
Author Author [facility] Address Unknown Phone Unavailable Encounter AUBREY Mccabe(FIN) [id number] Date(s): 07/13/17 - 07/13/17 [facility] [address] [place] [address] [phone] Discharge Disposition: Home or Self Care Attending Physician: Lady Johnson MD Referring Physician: Lady Johnson MD Vital Signs Most recent to 1 oldest [Reference Range]: Height 175.26 cm (07/13/17 9:22 AM) Temperature Oral 98.1 DegF [96.4-99.1 DegF] (07/13/17 9:22 AM) Blood Pressure 148/82 mmHg [90-140/60-90 mmHg] *HI* (07/13/17 9:22 AM) Peripheral Pulse 82 bpm Rate [60-100 bpm] (07/13/17 9:22 AM) Weight 70.966 kg (07/13/17 9:22 AM) Body Mass Index 23.1 m2 (07/13/17 9:22 AM) Problem List Condition Effective Dates Status Health Status Informan t HTN Active (hypertension)(Confi rmed) Chicken Active pox(Confirmed) Allergies, Adverse Reactions, Alerts Substance Reaction Severity Status NKDA Active Medications amLODIPine 5 mg oral tablet 5 mg = 1 tab, PO, Daily, # 90 tab, 1 Refill(s), Pharmacy: [facility] [place] Start Date: 07/13/17 Status: Ordered Flonase 0.05 mg/inh nasal spray 1 spray, NASAL, BID, # 16 gm, 2 Refill(s), Pharmacy: [facility] [place] Start Date: 07/13/17 Status: Ordered FLUoxetine 40 mg oral capsule 40 mg = 1 cap, PO, Daily, # 90 cap, 1 Refill(s), Pharmacy: [facility] Start Date: 07/13/17 Status: Ordered Results No data available for [...]
--- OUTSIDE RECORDS SUMMARY | 2019-11-19 13:59 | XMS REPORT | Summary of Care ---
Author Author [facility] Address Unknown Phone Unavailable Encounter HQ Encntr_alias(FIN) [id number] Date(s): 12/06/18 - 12/07/18 [facility] [address] [place] [address]- [phone] Vital Signs No data available for this section Problem List Condition Effective Dates Status Health Status Informan t HTN Active (hypertension)(Confi rmed) Chicken Active pox(Confirmed) Allergies, Adverse Reactions, Alerts No Known Medication Allergies Medications No data available for this section Results No data available for this section [...] use per day: 10; entered on: 11/27/18 Assessment and Plan No data available for this section
--- OUTSIDE RECORDS SUMMARY | 2019-11-19 13:59 | XMS REPORT | Summary of Care ---
Author Author [facility] Organization [facility] Address Unknown Phone Unavailable Care Team Providers Care Police Lieutenant Precinct Name Role Phone Lady Johnson PCP Encounter HQ Encntr_eugenia(FIN) [id number] Date(s): 12/04/18 - 12/04/18 [facility] [place] [id number] [facility], [address] [place] [address] [phone] Discharge Disposition: Home or Self Care Attending Physician: Lady Johnson MD Referring Physician: Lady Johnson MD Vital Signs No data available for this [...]
--- OUTSIDE RECORDS SUMMARY | 2019-11-19 13:59 | XMS REPORT | Summary of Care ---
Author Author [facility] Address Unknown Phone Unavailable Encounter HQ Elizabetr_eugenia(FIN) [id number] Date(s): 05/24/17 - 05/24/17 [facility] [address] [place] [address]- [phone] Discharge Disposition: Home or Self Care Attending Physician: Lady Johnson MD Referring Physician: Lady Johnson MD Vital Signs Most recent to 1 oldest [Reference Range]: Height 175.26 cm (05/24/17 2:17 PM) Temperature Oral 98.4 DegF [96.4-99.1 DegF] (05/24/17 2:17 PM) Blood Pressure 122/82 mmHg [90-140/60-90 mmHg] (05/24/17 2:17 PM) Peripheral Pulse 92 bpm Rate [60-100 bpm] (05/24/17 2:17 PM) Weight 73.295 kg (05/24/17 2:17 PM) Body Mass Index 23.86 m2 (05/24/17 2:17 PM) Problem List Condition Effective Dates Status Health Status Informan t HTN Active (hypertension)(Confi rmed) Chicken Active pox(Confirmed) Allergies, Adverse Reactions, Alerts Substance Reaction Severity Status NKDA Active Medications TamiFLU 75 mg oral capsule 75 mg, PO, BID, X 5 day, # 10 cap, 0 Refill(s), Pharmacy: [facility] Start Date: 05/24/17 Stop Date: 05/29/17 Status: Ordered Results No data available for [...] Counseling No; Tobacco use per day: 10; Assessment and Plan No data available for this section
--- OUTSIDE RECORDS SUMMARY | 2019-11-19 13:59 | XMS REPORT | Summary of Care ---
Author Author [facility] Address Unknown Phone Unavailable Encounter HQ Eliot(FIN) [id number] Date(s): 12/10/18 - 12/10/18 [facility] [address] [place] [address]- [phone] Discharge Disposition: Home or Self Care Attending Physician: Lady Johnson MD Vital Signs Most recent to 1 oldest [Reference Range]: Height 175.26 cm (12/10/18 11:31 AM) Temperature Oral 98.0 DegF [96.4-99.1 DegF] (12/10/18 11:31 AM) Blood Pressure 151/88 mmHg [90-140/60-90 mmHg] *HI* (12/10/18 11:31 AM) Peripheral Pulse 78 bpm Rate [60-100 bpm] (12/10/18 11:31 AM) Weight 68.239 kg (12/10/18 11:31 AM) Body Mass Index 22.22 m2 (12/10/18 11:31 AM) Problem List Condition Effective Dates Status Health Status Informan t HTN Active (hypertension)(Confi rmed) Chicken Active pox(Confirmed) Allergies, Adverse Reactions, Alerts No Known Medication Allergies Medications Anoro Ellipta 62.5 mcg-25 mcg inhalation powder 1 puff, INHALATION, Daily, # 1 ea, 5 Refill(s), Pharmacy: [facility] Start Date: 12/10/18 Status: Ordered Chantix Starter Pack 0.5 mg-1 mg oral tablet See Instructions, follow instructions on kit, # 1 kit, 0 Refill(s), Pharmacy: [facility] Start Date: 12/10/18 Status: Ordered Results No data available for [...] Tobacco use per day: 10; entered on: 12/10/18 Assessment and Plan No data available for this section
--- OUTSIDE RECORDS SUMMARY | 2019-11-19 13:59 | XMS REPORT | Summary of Care ---
Author Author [facility] Address Unknown Phone Unavailable Care Team Providers Care Masonry Inspector Name Role Phone Lady Johnson PCP Encounter HQ Encntr_alias(FIN) [id number] Date(s): 12/03/18 - 12/03/18 [facility] [address] [place] [address]- [phone] Attending Physician: Lady Johnson MD Vital Signs No data available for this section Problem List Condition Effective Dates Status Health Status Informan t HTN Active (hypertension)(Confi rmed) Chicken Active pox(Confirmed) Allergies, Adverse Reactions, Alerts No Known Medication Allergies Medications amLODIPine-olmesartan 10 mg-20 mg oral tablet 1 tab, PO, Daily, # 30 tab, 0 Refill(s), Pharmacy: [facility] [place] Start Date: 09/17/18 Stop Date: 10/03/18 Status: Completed Results No data available for this section [...]
--- OUTSIDE RECORDS SUMMARY | 2019-11-19 13:59 | XMS REPORT | Summary of Care ---
Author Author [facility] Address Unknown Phone Unavailable Encounter HQ Eliot(FIN) [id number] Date(s): 07/13/17 - 07/13/17 [facility] [address] [place] [address] [phone] Discharge Disposition: Home or Self Care Attending [...] # 90 tab, 1 Refill(s), Pharmacy: [facility] Start Date: 07/13/17 Status: Ordered Flonase 0.05 mg/inh nasal spray 1 spray, NASAL, BID, # 16 gm, 2 Refill(s), Pharmacy: [facility] [place] Start Date: 07/13/17 Status: Ordered FLUoxetine 40 [...]
--- OUTSIDE RECORDS SUMMARY | 2019-11-19 13:59 | XMS REPORT | Summary of Care ---
Author Author [facility] Address Unknown Phone Unavailable Care Team Providers Care Warehouse Team Member Name Role Phone Lady Johnson PCP Encounter HQ Encntr_eugenia(FIN) [id number] Date(s): 10/03/18 - 10/04/[address] [facility] [address] [place] [address]- [phone] Vital Signs No data available for this section Problem List Condition Effective Dates Status Health Status Informan t HTN Active (hypertension)(Confi rmed) Chicken Active pox(Confirmed) Allergies, Adverse Reactions, Alerts No Known Medication Allergies Medications amLODIPine-olmesartan 10 mg-40 mg oral tablet 1 tab, PO, Daily, # 30 tab, 0 Refill(s), Pharmacy: [facility] [place] Start Date: 10/03/18 Status: Ordered Results No [...]
--- OUTSIDE RECORDS SUMMARY | 2019-11-19 13:59 | XMS REPORT | Summary of Care ---
Author Author [facility] Address Unknown Phone Unavailable Care Team Providers Care Clammer Name Role Phone Lady Johnson PCP Encounter HQ Encntr_alias(FIN) [id number] Date(s): 12/02/18 - 12/03/18 [facility] [address] [place] [address]- [phone] Vital Signs No data available for this [...]
--- OUTSIDE RECORDS SUMMARY | 2019-11-19 13:59 | XMS REPORT | Summary of Care ---
Author Author [facility] Address Unknown Phone Unavailable Encounter HQ Elizabetr_eugenia(FIN) [id number] Date(s): 08/06/18 - 08/06/18 [facility] [address] [place] [address]- [phone] Discharge Disposition: Home or Self Care Attending Physician: Lady Johnson MD Vital Signs Most recent to 1 oldest [Reference Range]: Height 175.26 cm (08/06/18 8:59 AM) Temperature Oral 97.9 DegF [96.4-99.1 DegF] (08/06/18 8:59 AM) Blood Pressure 175/90 mmHg [90-140/60-90 mmHg] *HI* (08/06/18 8:59 AM) Peripheral Pulse 77 bpm Rate [60-100 bpm] (08/06/18 8:59 AM) Weight 68.295 kg (08/06/18 8:59 AM) Body Mass Index 22.23 m2 (08/06/18 8:59 AM) Problem List Condition Effective Dates Status Health Status Informan t HTN Active (hypertension)(Confi rmed) Chicken Active pox(Confirmed) Allergies, Adverse Reactions, Alerts Substance Reaction Severity Status NKDA Active Medications amLODIPine 5 mg oral tablet 5 mg = 1 tab, PO, Daily, # 30 tab, 0 Refill(s), Pharmacy: [facility] Start Date: 08/06/18 Status: Ordered Results No data available for [...] Tobacco use per day: 10; entered on: 08/06/18 Assessment and Plan No data available for this section
--- OUTSIDE RECORDS SUMMARY | 2019-11-19 13:59 | XMS REPORT | Summary of Care ---
Author Author [facility] Address Unknown Phone Unavailable Care Team Providers Care Motel Manager Name Role Phone Lady Johnson PCP Encounter HQ Valentr_eugenia(FIN) [id number] Date(s): 11/27/18 - 11/27/18 [facility] [address] [place] [address]- [phone] Discharge Disposition: Home or Self Care Attending Physician: Lady Johnson MD Vital Signs Most recent to 1 oldest [Reference Range]: Height 175.26 cm (11/27/18 8:17 AM) Temperature Oral 97.9 DegF [96.4-99.1 DegF] (11/27/18 8:17 AM) Blood Pressure 150/84 mmHg [90-140/60-90 mmHg] *HI* (11/27/18 8:17 AM) Peripheral Pulse 80 bpm Rate [60-100 bpm] (11/27/18 8:17 AM) Weight 66.96 kg (11/27/18 8:17 AM) Body Mass Index 21.8 m2 (11/27/18 8:17 AM) Problem List Condition Effective Dates Status Health Status Informan t HTN Active (hypertension)(Confi rmed) Chicken Active pox(Confirmed) Allergies, Adverse Reactions, Alerts No Known Medication Allergies Medications Metoprolol Succinate ER 25 mg oral tablet, extended release 25 mg = 1 tab, PO, Daily, # 90 tab, 1 Refill(s), [facility]: [facility] Start Date: 11/27/18 Status: Ordered Results No data available for [...]
--- OUTSIDE RECORDS SUMMARY | 2019-11-19 13:59 | XMS REPORT | Summary of Care ---
Author Author [facility] Address Unknown Phone Unavailable Care Team Providers Care Precision Millwright Name Role Phone Lady Johnson PCP Encounter HQ Encntr_alias(FIN) [phone] Date(s): 10/08/18 - 10/09/18 [facility] [address] [place] [address]- [phone] Vital Signs No data available for this [...]
--- OUTSIDE RECORDS SUMMARY | 2019-11-19 13:59 | XMS REPORT | Summary of Care ---
Author Author [facility] Address Unknown Phone Unavailable Care Team Providers Care Coat Finisher Name Role Phone Lady Johnson PCP Encounter HQ Valentr_eugenia(FIN) [phone] Date(s): 10/16/18 - 10/16/18 [facility] [address] [place] [address]- [phone] Discharge Disposition: Home or Self Care Attending Physician: Lady Johnson MD Vital Signs Most recent to 1 oldest [Reference Range]: Height 175.26 cm (10/16/18 1:36 PM) Temperature Oral 97.7 DegF [96.4-99.1 DegF] (10/16/18 1:36 PM) Blood Pressure 144/88 mmHg [90-140/60-90 mmHg] *HI* (10/16/18 1:36 PM) Peripheral Pulse 86 bpm Rate [60-100 bpm] (10/16/18 1:36 PM) Weight 70.142 kg (10/16/18 1:36 PM) Body Mass Index 22.84 m2 (10/16/18 1:36 PM) Problem List Condition Effective Dates Status Health Status Informan t HTN Active (hypertension)(Confi rmed) Chicken Active pox(Confirmed) Allergies, Adverse Reactions, Alerts No Known Medication Allergies Medications amLODIPine-olmesartan 10 mg-40 mg oral tablet 1 tab, PO, Daily, # 90 tab, 1 Refill(s), Pharmacy: [facility] Start Date: 10/16/18 Status: Ordered metoprolol 25 mg oral tablet, extended release 25 mg = 1 tab, PO, Daily, # 30 tab, 0 Refill(s), Pharmacy: [facility] Pharm[facility] Start Date: 10/16/18 Status: Ordered Results No data available for [...] Tobacco use per day: 10; entered on: 10/16/18 Assessment and Plan No data available for this section
[2019-11-19] MEDS ORDERED: DEXAMETHASONE SOD PHOS 10 MG/1 ML VIAL IM ONE (14:15)
[2019-11-19] MEDS ORDERED: DIPHENHYDRAMINE HCL 25 MG CAP PO ONE (14:15)
[2019-11-19] MEDS ORDERED: FAMOTIDINE 20 MG TAB PO ONE (14:15)
--- NOTE | 2019-11-19 14:17 | Emergency Department Note ---
History of Present Illnes History of Present Illness Chief Complaint: General Medicine Complaints History of Present Illness This is a 63 year old male c/o wasp sting left ear 1030 am while out side painting shed Onset (how long ago): day(s) (today ) Location: left ear Quality: mod Radiation: Denies non-radiation, Denies back, Denies neck, Denies extremity, Denies abdomen, Denies periumbilical, Denies flank, Denies proximal, Denies distal, Denies other Severity: moderate Onset quality: sudden Duration (how long): day(s) (today ) Timing of current episode: constant Progression: improving Context: Denies recent illness, Denies recent surgery, Denies recent immobilization, Denies recent travel, Denies trauma/injury, Denies new medications, Denies hx of DVT/PE, Denies non-compliance w/ medications, Denies other Relieving factors: none Exacerbating factors: none Associated symptoms: Denies denies other symptoms, Denies confusion, Denies chest pain, Denies cough, Denies diaphoresis, Denies fever/chills, Denies headaches, Denies loss of appetite, Denies malaise, Denies nausea/vomiting, Denies rash, Denies seizure, Denies shortness of breath, Denies syncope, Denies weakness, Denies other Treatments prior to arrival: none Past Medical/Family History Physician Review I have reviewed the patient's past medical and family history. Any updates have been documented here. Past Medical History Recent Fever: No Clinical Suspicion of Infectio: No New/Unexplained Change in Ment: No Other Surgery: SPHINCTEROTOMY DEC 2 RADICAL FACIOTOMY ON R ARM Social History Smoking Cessation: Current every day smoker Alcohol Use: None Any Illegal Drug Use: No TB Exposure/Symptoms: No Physically hurt or threatened: No Family History Family history of heart diseas: No Other Last Tetanus: 5 YEARS Any Pre-Existing Lines (PICC,: No Review of Systems Review of Systems Constitutional: Reports no symptoms EENTM: Reports no symptoms Cardiovascular: Reports no symptoms Respiratory: Reports no symptoms Gastrointestinal: Reports no symptoms Genitourinary: Reports no symptoms Musculoskeletal: Reports no symptoms Integumentary: Reports no symptoms, Reports other (c/o wasp sting to left ear ) Neurological: Reports no symptoms Psychological: Reports no symptoms Endocrine: Reports no symptoms Hematological/Lymphatic: Reports no symptoms Review of other systems All other systems reviewed and negative. Physical Exam Related Data Allergies: Coded Allergies: No Known Allergies (Unverified , 07/06/14) Vital signs reviewed: Yes Physical Exam CONSTITUTIONAL Constitutional: Reports well-developed, Reports well-nourished HENT HENT: Reports normocephalic, Reports atraumatic, Reports oropharynx clear/moist, Reports nose normal HENT L/R: Reports left ext ear normal, Reports right ext ear normal EYES Eyes: Reports PERRL, Reports conjunctivae normal NECK Neck: Reports ROM normal PULMONARY Pulmonary: Reports effort normal, Reports breath sounds normal; Denies respiratory distress, Denies rales, Denies rhonchi, Denies chest tenderness CARDIOVASCULAR Cardiovascular: Reports regular rhythm, Reports heart sounds normal, Reports capillary refill normal, Reports normal rate GASTROINTESTINAL Abdominal: Reports soft, Reports nontender, Reports bowel sounds normal GENITOURINARY Genitourinary: Reports exam deferred SKIN Skin: Reports warm, Reports dry, Reports other (c/o wasp sting to left ear minimal swelling noted c/o tenderness to left side neck post sting - no angio edema noted ) MUSCULOSKELETAL Musculoskeletal: Reports ROM normal NEUROLOGICAL Neurological: Reports alert, Reports oriented x 3, Reports no gross motor or sensory deficits PSYCHOLOGICAL Psychological: Reports mood/affect normal, Reports judgement normal Assessment & Plan Medical Decision Making MDM This is a 63 year old male c/o wasp sting left ear 1030 am while out side painting shed D/D angio edema / allergic reaction / localized reaction Reassessment Reassessment pt medicated w/ w/ decadron 10mg im pepcid 40mg po benadryl 50mg po discussed plan of care and f/u instructions plan: 1. tylenol and motirn and benadryl as needed 2. return to ed as needed 3. follow up with your doctor in 1-2 days without fail 4. prednisone / pepcid Assessment & Plan Final Impression: (1) Insect sting (2) Allergic reaction Depart Disposition: HOME, SELF-detention Meds Reported Medications Lisinopril (LISINOPRIL) 10 Mg Tablet, 10 MG PO DAILY, #30 TAB 07/06/14 ADA MOORE MD Nov 19, 2019 14:17
[2019-11-19] MEDS ORDERED: DIPHENHYDRAMINE HCL ELIX 12.5 MG/5 ML UDC ONE (14:29)
== END 2019-11-19 15:01 | disposition home or self-care (01) ==
LOC: ER 13:56
DX: T63.461A Toxic effect of venom of wasps, accidental (unintentional), initial encounter (principal); T78.40XA Allergy, unspecified, initial encounter; Y92.008 Other place in unspecified non-institutional (private) residence as the place of occurrence of the external cause; F17.210 Nicotine dependence, cigarettes, uncomplicated
CPT/HCPCS: 99282; J1100